=== PATIENT | female | born 1965 | race African-American/Black ===

== ENCOUNTER 2020-07-05 09:52 | Outpatient (CLI) | payer MEDICAID, SELFPAY ==
--- NOTE | ~2020-07-05 | CT_ITS ---
EXAMINATION:CT chest w con DATE: 07/05/2020 10:48 INDICATION: Right chest pain. Other specified pleural conditions. TECHNIQUE: Computed tomography (CT) of the chest was performed with 75 mL Omnipaque 350 intravenous c ontrast. Automated exposure control and iterative reconstruction technique were employed. The dose-le ngth product (DLP) was 169.72 mGy-cm. COMPARISON: None. FINDINGS: There is a 9 mm nodule at the junction of right major fissure and minor fissure. There is m inimal atelectasis bilaterally. No pleural effusion. The heart size is normal. No pericardial effusio n. There is a small sliding hiatal hernia. There is mild thoracic spondylosis. IMPRESSION: 1. 9 mm nodule in right lung, probably benign. Noncontrast low-dose chest CT is recommended in 3-6 mo nths. Reviewed, dictated and finalized at location A. IMPRESSION: 1. 9 mm nodule in right lung, probably benign. Noncontrast low-dose chest CT is recommended in 3-6 months.
== END 2020-07-05 09:53 | disposition home or self-care (01) ==
PROVIDERS: Visit Provider Family Medicine
DX: R91.1 Solitary pulmonary nodule (principal)
CPT/HCPCS: 71260; Q9967

== ENCOUNTER 2020-07-19 08:58 | Outpatient (CLI) | payer SELFPAY ==
--- NOTE | ~2020-07-19 | MMUS_ITS ---
EXAMINATION: MM diagnostic lyndsey BI w keke, US breast LT limited HISTORY: Pain in the upper outer left breast TECHNIQUE: Craniocaudal, mediolateral, and mediolateral oblique 3-D tomosynthesis images of the breas ts were performed and synthetic 2-D images were generated. CAD analysis was submitted and interpreted . High resolution Limited right breast ultrasound was performed. COMPARISON: No prior mammogram is currently available for comparison. BREAST PARENCHYMAL COMPOSITION: There are scattered areas of fibroglandular density. FINDINGS: MAMMOGRAPHIC FINDINGS: Right breast: There is no evidence of suspicious mass, calcification, or architectural distortion to suggest malignancy. Left breast: There is an approximately 1.9 x 0.4 cm oval, bilobed low density mass in the middle thir d of the lower-outer breast at the 4:00 location 8 cm from the nipple. No suspicious calcification or architectural distortion are identified. There is no mammographic correlate for the patient's report ed breast pain. ULTRASOUND: No sonographic correlate is identified for the patient's reported breast pain. There is a 1.4 x 0.3 c m cyst at the 4:00 location 4 cm from the nipple corresponding to the mammographic finding in questio n. An adjacent 4 mm x 3 mm oval, parallel, circumscribed, hypoechoic mass is present at the 4:00 loca tion 4 cm from the nipple. IMPRESSION: 1. No specific mammographic or sonographic correlate is identified for the patient's breast pain Furt her evaluation at this time should be based on clinical assessment. Continued follow-up physical exam ination is recommended. 2. Probably benign mass in the lower outer left breast. 3. Recommend 6 month follow-up left diagnostic mammogram and ultrasound. BI-RADS category 3, probably benign findings. Reviewed, dictated and finalized at location A. IMPRESSION: 1. No specific mammographic or sonographic correlate is identified for the joan ent's breast pain Further evaluation at this time should be based on clinical a ssessment. Continued follow-up physical examination is recommended. 2. Probably benign mass in the lower outer left breast. 3. Recommend 6 month follow-up left diagnostic mammogram and ultrasound. BI-RADS category 3, probably benign findings.
--- NOTE | ~2020-07-19 | MR_ITS ---
EXAMINATION: MR shoulder RT wo con DATE: 07/19/2020 11:53 INDICATION: Adhesive capsulitis of the right shoulder TECHNIQUE: Magnetic resonance imaging (MRI) of the right shoulder was performed without intravenous c ontrast. Sequences included axial PD-weighted FS FSE, coronal oblique PD-weighted FS FSE, coronal obl ique T2-weighted FS FSE, sagittal PD-weighted FS FSE, and sagittal T1-weighted SE. COMPARISON: None. FINDINGS: Coracoacromial arch: The acromion undersurface is curved in morphology (type II) with small subacromial spurs. The coracoa cromial ligament is normal. Mild to moderate acromioclavicular osteoarthritis with small inferiorly d irected osteophytes. Rotator cuff: Mild supraspinatus and infraspinatus tendinopathy. Small mild bursal sided tear measuring extending a pproximately 6 mm AP along the superior facet footplate and involving up to one third of the tendon t hickness. The teres minor and subscapularis tendons are normal. Normal rotator cuff muscle bulk and s ignal. Biceps tendon, glenoid labrum and glenohumeral cartilage: Long head of the biceps tendon is normal. Glenoid labrum is normal. Glenohumeral cartilage is normal. Fluid: Physiologic amount of fluid in the glenohumeral joint and biceps tendon sheath. No loose osteochondra l bodies. Small amount of fluid in the subacromial/subdeltoid bursa consistent with mild bursitis. Bones/other: In the lateral metaphyseal region of the proximal right humerus there is a 1.7 x 1.4 x 0.9 cm T2 hype rintense lesion with lobular margins and cluster of grape like appearance central ring and arc-like p attern of decreased signal suggesting an enchondroma with chondroid matrix. Mild cystic change along the middle facet of the greater tuberosity likely related to rotator cuff disease. Otherwise normal m arrow signal with no fracture or pathologic marrow replacing process. Thickening of the capsule at th e axillary recess as well as loss of fat signal at the rotator cuff interval. IMPRESSION: 1. Mild supraspinatus and infraspinatus tendinopathy with small mild bursal sided insertional tear at the distal supraspinatus tendon. 2. Thickening of the glenoid humeral joint capsule at the axillary recess and increased soft tissue d ensity replacing the normal fat signal at the rotator cuff interval, both findings which can be seen in the setting of adhesive capsulitis which is a clinical diagnosis. 3. Mild subacromial/subdeltoid bursitis. 4. Mild to moderate acromioclavicular osteoarthritis. 5. 1.7 cm T2 hyperintense metaphyseal region at the proximal right humerus with typical location and appearance of an enchondroma. Consider correlation with plain radiographs to both confirm presence of chondroid matrix and to assess for any aggressive features. Reviewed, dictated and finalized at location A. IMPRESSION: 1. Mild supraspinatus and infraspinatus tendinopathy with small mild bursal scott ed insertional tear at the distal supraspinatus tendon. 2. Thickening of the glenoid humeral joint capsule at the axillary recess and i ncreased soft tissue density replacing the normal fat signal at the rotator cuf f interval, both findings which can be seen in the setting of adhesive capsulit is which is a clinical diagnosis. 3. Mild subacromial/subdeltoid bursitis. 4. Mild to moderate acromioclavicular osteoarthritis. 5. 1.7 cm T2 hyperintense metaphyseal region at the proximal right humerus with typical location and appearance of an enchondroma. Consider correlation with p nikole radiographs to both confirm presence of chondroid matrix and to assess for any aggressive features.
== END 2020-07-19 08:59 | disposition home or self-care (01) ==
PROVIDERS: PCP Family Medicine; Visit Provider Family Medicine
DX: M75.01 Adhesive capsulitis of right shoulder (principal); N64.4 Mastodynia; M75.51 Bursitis of right shoulder; R92.8 Other abnormal and inconclusive findings on diagnostic imaging of breast
CPT/HCPCS: 73221; 76642; 77062; 77066; G0279

== ENCOUNTER 2020-07-21 09:04 | Outpatient (CLI) | payer SELFPAY ==
--- NOTE | ~2020-07-21 | XR_ITS ---
XR hip RT min 2V DATE: 07/21/2020 09:31 INDICATION: Right hip pain. No known injury. TECHNIQUE: AP and lateral views COMPARISON: None FINDINGS: No fracture or dislocation, avascular necrosis or bone destruction. Right hip joint space i s well preserved. The pubic symphysis and right sacroiliac joint appear intact. IMPRESSION: Negative right hip Reviewed, dictated and finalized at location B. IMPRESSION: Negative right hip
--- NOTE | ~2020-07-21 | US_ITS ---
EXAMINATION: US right upper quadrant EXAM DATE: 07/21/2020 10:22 INDICATION: Upper quadrant pain. TECHNIQUE: Multiple grayscale and Doppler images of the abdomen right upper quadrant were obtained (lenny scott a technologist who performed the scan) and subsequently reviewed. There is no prior study for zamzam sylvester. FINDINGS: Pancreas poorly visualized due to overlying bowel gas. The liver has normal echogenicity and contour . There are no focal liver lesions identified. There is no evidence of intrahepatic biliary duct d ilation. Portal venous flow was seen in the hepatopedal, normal direction and has normal Doppler wav eform. No right-sided hydronephrosis. Common bile duct measures 3 mm, which is normal. The gallbladder wall is normal in thickness, with ex pected amount of distention. No sonographic evidence of pericholecystic fluid. There is a 3 mm gall bladder polyp not clinically significant. Technologist performing exam reports patient did not demon strate sonographic Judge's sign. Please note that this sign is less reliable in patients who have r eceived pain medication. IMPRESSION: 1. Unremarkable abdominal ultrasound exam. Reviewed, dictated and finalized at location A.
== END 2020-07-21 09:05 | disposition home or self-care (01) ==
PROVIDERS: PCP Family Medicine; Visit Provider Family Medicine
DX: R10.11 Right upper quadrant pain (principal); M25.551 Pain in right hip
CPT/HCPCS: 73502; 76705